=== PATIENT | male | born 1980 | race Two or more races ===

== ENCOUNTER 2022-10-23 11:49 | Inpatient (IN) | payer BC, MEDICAID ==
[~2022-10-23] VITALS: Ht 167.6 cm; Wt 96.2 kg
[2022-10-23] MEDS ORDERED: ASPirin 81 mg TAB PO ONE (12:00)
[2022-10-23 12:03] LABS: Eosinophils # (auto) 0.4 10 ^3/uL (0-0.8); Hemoglobin 16.1 g/dL (13.5-17.5); Neutrophils % (auto) 55.6 % (37.0-80.0); Red Blood Cells 6.15 10^6/uL (4.5-5.90)
[2022-10-23 12:05] LABS: Basophils # (auto) 0 10 ^3/uL (0-0.2); Basophils % (auto) 0.6 % (0.0-2.0); Eosinophils % (auto) 4.6 % (0.0-7.0); Hematocrit 47.8 % (41.0-53.0); Lymphocytes # (auto) 2.8 10 ^3/uL (0.4-5.4); Mean Corpuscular Hemoglobin 26.2 pg (28.0-32.0); Mean Corpuscular Hgb Conc. 33.6 g/dL (32.0-36.0); Mean Corpuscular Volume 77.8 fL (80.0-100.0); Monocytes # (auto) 0.6 10 ^3/uL (0-1.3); Monocytes % (auto) 7.2 % (0.0-12.0); Neutrophils # (auto) 4.8 10 ^3/uL (1.6-8.6); Nucleated Red Blood Cells % 0.2 %; Red Cell Distribution Width 12.9 % (11.8-14.3); White Blood Cell 8.6 10^3/uL (4.4-10.8)
[2022-10-23 12:26] LABS: Albumin 3.9 g/dL (3.4-5.0); Calcium 9.2 mg/dL (8.5-10.1); Potassium 3.7 mmol/L (3.5-5.1)
[2022-10-23 12:29] LABS: BUN/Creatinine Ratio 15.8 (10.0-20.0); Bilirubin, Total 0.8 mg/dL (0.2-1.0); Total Protein 7.9 g/dL (6.4-8.2)
[2022-10-23] MEDS ORDERED: ONDANSETRON HCL 4 MG/2 ML VIAL IV ONE (15:45)
[2022-10-23] MEDS ORDERED: HEPARIN 1,000 UNITS/ml 1ML VIAL IV ONE (15:45)
[2022-10-23] MEDS ORDERED: MORPHINE SULFATE 4 MG/ML SYR/VIAL IV ONE (15:45)
[2022-10-23] MEDS ORDERED: HEPARIN DRIP/D5W 100UNITS/ML 250 ML IV SCH (15:45)
[2022-10-23] MEDS ORDERED: ASPI-325 PO (16:26)
[2022-10-23] MEDS ORDERED: FENO160T PO (16:26)
[2022-10-23] MEDS ORDERED: CARV6.2551 PO (16:26)
[2022-10-23] MEDS ORDERED: LOSA50TA46 PO (16:26)
[2022-10-23] MEDS ORDERED: ATOR40TA52 PO (16:26)
[2022-10-23] MEDS ORDERED: HYDR12.55 PO (16:26)
[2022-10-23 16:27] LABS: Basophils # (auto) 0.1 10 ^3/uL (0-0.2); Basophils % (auto) 0.7 % (0.0-2.0); Eosinophils # (auto) 0.3 10 ^3/uL (0-0.8); Eosinophils % (auto) 3.3 % (0.0-7.0); Hematocrit 46.8 % (41.0-53.0); Hemoglobin 15.9 g/dL (13.5-17.5); Lymphocytes % (auto) 24.5 % (10.0-50.0); Mean Corpuscular Hemoglobin 26.3 pg (28.0-32.0); Mean Corpuscular Hgb Conc. 33.9 g/dL (32.0-36.0); Mean Corpuscular Volume 77.6 fL (80.0-100.0); Monocytes # (auto) 0.7 10 ^3/uL (0-1.3); Neutrophils # (auto) 5.2 10 ^3/uL (1.6-8.6); Neutrophils % (auto) 63.5 % (37.0-80.0); Nucleated Red Blood Cells % 0.3 %; Red Blood Cells 6.04 10^6/uL (4.5-5.90); Red Cell Distribution Width 13.1 % (11.8-14.3); White Blood Cell 8.2 10^3/uL (4.4-10.8)
[2022-10-23 16:28] LABS: INR 1.04 (0.9-1.15); Partial Thromboplastin Time 31.1 SEC (24.5-34.5)
[2022-10-23] MEDS ORDERED: NITROGLYCERIN 0.4 MG SL TAB SL PRN (16:30)
[2022-10-23] MEDS ORDERED: MORPHINE SULFATE INJ 2 MG/ml SYRG IV PRN (16:30)
[2022-10-23] MEDS ORDERED: hydrALAZINE HCL 20 MG/ML VL IV PRN (16:30)
[2022-10-23] MEDS ORDERED: SODIUM CHLORIDE 0.9% 1,000 ML IV ONE (16:45)
[2022-10-23 18:24] LABS: Magnesium 2.3 mg/dL (1.6-2.6)
[2022-10-23 19:26] LABS: Urine Bacteria NONE SEEN /hpf (None Seen); Urine Blood Negative /uL (Negative); Urine Mucus FEW (None Seen); Urine Specific Gravity 1.029 (1.001-1.035); Urine WBC 1 /hpf (0 - 3)
[2022-10-23 19:41] LABS: Alcohol, Urine < 3.0 mg/dL (0-10); Amphetamine Screen, Urine NEGATIVE (NEGATIVE); Barbiturate Scree,Urine NEGATIVE (NEGATIVE); Benzodiazephine Screen, Urine NEGATIVE (NEGATIVE); Cocaine Screen, Urine NEGATIVE (NEGATIVE)
[2022-10-23 19:49] LABS: Cannabinoid Screen, Urine POSITIVE (NEGATIVE); Opiate Scree,Urine POSITIVE (NEGATIVE); Phencyclidine Screen, Urine NEGATIVE (NEGATIVE)
[2022-10-23] MEDS: CARVEDILOL 3.125 MG TAB PO SCH (22:00)
[2022-10-23] MEDS: ATORVASTATIN 20 MG TAB PO SCH (23:14)
[2022-10-23 23:41] LABS: INR 1.05 (0.9-1.15); Partial Thromboplastin Time 41.3 SEC (24.5-34.5)
[2022-10-24] VITALS (11 sets, daily range): BP systolic 101–169; BP diastolic 50–103
[2022-10-24 06:26] LABS: Eosinophils # (auto) 0.4 10 ^3/uL (0-0.8); Hemoglobin 15.2 g/dL (13.5-17.5); Monocytes # (auto) 0.6 10 ^3/uL (0-1.3); Neutrophils # (auto) 4.6 10 ^3/uL (1.6-8.6); Nucleated Red Blood Cells % 0.3 %
[2022-10-24 06:29] LABS: Basophils # (auto) 0 10 ^3/uL (0-0.2); Basophils % (auto) 0.4 % (0.0-2.0); Eosinophils % (auto) 4.6 % (0.0-7.0); Hematocrit 45.5 % (41.0-53.0); Lymphocytes # (auto) 3.1 10 ^3/uL (0.4-5.4); Lymphocytes % (auto) 35.5 % (10.0-50.0); Mean Corpuscular Hemoglobin 26.2 pg (28.0-32.0); Mean Corpuscular Hgb Conc. 33.3 g/dL (32.0-36.0); Mean Corpuscular Volume 78.6 fL (80.0-100.0); Neutrophils % (auto) 52.5 % (37.0-80.0); Red Blood Cells 5.79 10^6/uL (4.5-5.90); Red Cell Distribution Width 13.2 % (11.8-14.3); White Blood Cell 8.8 10^3/uL (4.4-10.8)
[2022-10-24 06:33] LABS: Albumin 3.5 g/dL (3.4-5.0); BUN/Creatinine Ratio 16.7 (10.0-20.0); Calcium 8.4 mg/dL (8.5-10.1); Potassium 3.8 mmol/L (3.5-5.1)
[2022-10-24 06:36] LABS: Bilirubin, Total 0.8 mg/dL (0.2-1.0); Total Protein 6.9 g/dL (6.4-8.2)
[2022-10-24] MEDS: PANTOPRAZOLE 40 MG/10 ML VIAL INJ IV SCH (09:53)
[2022-10-24] MEDS: ASPirin-EC 81 mg tab PO SCH (09:56)
[2022-10-24] MEDS: CARVEDILOL 3.125 MG TAB PO SCH ×2 (09:57→21:06)
[2022-10-24] MEDS: LOSARTAN POTASSIUM 50 MG TAB PO SCH (09:58)
[2022-10-24] MEDS: HCTZ 25 MG TAB PO SCH (09:59)
[2022-10-24] MEDS: Fenofibrate 160 MG TABLETS PO SCH (10:00)
[2022-10-24 11:20] LABS: INR 1.07 (0.9-1.15)
[2022-10-24] MEDS ORDERED: IODIXANOL 320MG/ML 100ML BTL IV ONE (15:44)
[2022-10-24] MEDS ORDERED: HEPARIN IN NS 1000Units/500mL 0 ML ONE (15:44)
[2022-10-24] MEDS ORDERED: LIDOCAINE 2%HCL (LOCAL ANESTH.) INJ 20ML MDV ONE (15:44)
[2022-10-24] MEDS ORDERED: HEPARIN SODIUM (PORCINE) 5000 UNITS/ML 1ML VIAL ONE (16:25)
[2022-10-24] MEDS ORDERED: VERAPAMIL 2.5MG/ML INJ 2ML VIAL IV ONE (16:25)
[2022-10-24] MEDS ORDERED: fentaNYL CITRATE 100 MCG/2 ML VL ONE (16:25)
[2022-10-24] MEDS ORDERED: ANGIOMAX 250 MG VIAL IV ONE (16:25)
[2022-10-24] MEDS ORDERED: MIDAZOLAM HCL 2MG/2ML 2ml VIAL (1mg/ml) ONE (16:26)
[2022-10-24] MEDS ORDERED: SODIUM CHL 0.9% 50 ML ONE (16:26)
[2022-10-24] MEDS ORDERED: EPINEPHrine HCL 1 MG/10 ML SYRG ONE (17:02)
[2022-10-24] MEDS ORDERED: EPTIFIBATIDE INJ (2MG/ML) 10ML VIAL IV ONE ×3 (17:09→17:27)
[2022-10-24] MEDS ORDERED: TICAGRELOR 90 MG TAB ONE (17:22)
[2022-10-24 20:19] LABS: INR 1.14 (0.9-1.15); Partial Thromboplastin Time 46.8 SEC (24.5-34.5)
[2022-10-24 20:24] LABS: Magnesium 2.1 mg/dL (1.6-2.6); Potassium 3.5 mmol/L (3.5-5.1)
[2022-10-24] MEDS: ATORVASTATIN 20 MG TAB PO SCH (21:05)
[2022-10-24] MEDS: TICAGRELOR 90 MG TAB PO SCH (21:05)
[2022-10-24] MEDS ORDERED: ACETAMINOPHEN 325 MG TAB PO PRN (22:45)
[2022-10-25 05:00] VITALS: BP 143/85
[2022-10-25 09:00] VITALS: BP 130/63
[2022-10-25] MEDS: Fenofibrate 160 MG TABLETS PO SCH (10:00)
[2022-10-25] MEDS: HCTZ 25 MG TAB PO SCH (10:36)
[2022-10-25] MEDS: PANTOPRAZOLE 40 MG/10 ML VIAL INJ IV SCH (10:36)
[2022-10-25] MEDS: LOSARTAN POTASSIUM 50 MG TAB PO SCH (10:40)
[2022-10-25] MEDS: TICAGRELOR 90 MG TAB PO SCH (10:41)
[2022-10-25] MEDS: ASPirin-EC 81 mg tab PO SCH (10:41)
[2022-10-25] MEDS: CARVEDILOL 3.125 MG TAB PO SCH (10:41)
[2022-10-25] MEDS ORDERED: OMEP-434 PO ×2 (11:45→12:00)
[2022-10-25] MEDS ORDERED: LOSA100T58 PO ×2 (11:45→12:00)
[2022-10-25] MEDS ORDERED: ATOR-47 PO (11:45)
[2022-10-25] MEDS ORDERED: TICA90TA PO ×2 (11:45→12:00)
[2022-10-25] MEDS ORDERED: ALIR75IN2 SC (11:55)
[2022-10-25] MEDS ORDERED: ATOR80TA PO (12:00)
[2022-10-25 12:58] VITALS: BP 130/63
[2022-10-25 13:00] VITALS: BP 146/89
[2022-10-25] MEDS ORDERED: ATORVASTATIN 20 MG TAB PO SCH (22:00)
== END 2022-10-25 15:30 | disposition home or self-care (01) | DRG 270 ==
LOC: ER 11:49 → TELE 16:24 → TELE-EAST 10-24 04:15
PROVIDERS: ADMIT Nurse Practitioner Family; ATTEND Internal Medicine
PROC: 027135Z Dilation of Coronary Artery, Two Arteries with Two Drug-eluting Intraluminal Devices, Percutaneous Approach (ICD-10-PCS; principal; 2022-10-24)
PROC: 4A023N7 Measurement of Cardiac Sampling and Pressure, Left Heart, Percutaneous Approach (ICD-10-PCS; 2022-10-24)
PROC: B211YZZ Fluoroscopy of Multiple Coronary Arteries using Other Contrast (ICD-10-PCS; 2022-10-24)
PROC: X2CY3T7 Extirpation of Matter from Great Vessel using Computer-aided Mechanical Aspiration, Percutaneous Approach, New Technology Group 7 (ICD-10-PCS; 2022-10-24)
DX: T82.855A Stenosis of coronary artery stent, initial encounter (principal); I21.A1 Myocardial infarction type 2; I24.9 Acute ischemic heart disease, unspecified; I25.110 Atherosclerotic heart disease of native coronary artery with unstable angina pectoris; I10 Essential (primary) hypertension; E66.01 Morbid (severe) obesity due to excess calories; E78.5 Hyperlipidemia, unspecified; F17.210 Nicotine dependence, cigarettes, uncomplicated; F12.10 Cannabis abuse, uncomplicated; Y83.1 Surgical operation with implant of artificial internal device as the cause of abnormal reaction of the patient, or of later complication, without mention of misadventure at the time of the procedure; Z82.49 Family history of ischemic heart disease and other diseases of the circulatory system; Z68.33 Body mass index [BMI] 33.0-33.9, adult; Z83.3 Family history of diabetes mellitus; Z79.899 Other long term (current) drug therapy
CPT/HCPCS: 36415; 37187; 71045; 76937; 80053; 80061; 80307; 81001; 82435; 82565; 82575; 83036; 83735; 84132; 84295; 84443; 84484; 84520; 85025; 85379; 85610; 85730; 92928; 92929; 93005; 93306; 93458; 99152; 99153; 99291; C9113; G0378; J2250; J2405; Q9967